=== PATIENT | female | born 1985 | race African-American/Black ===

== ENCOUNTER 2017-01-23 13:10 | Emergency (ER) | payer SELFPAY ==
[~2017-01-23] VITALS: Ht 152.4 cm; Wt 77.1 kg
[2017-01-23] MEDS ORDERED: IV NORMAL SALINE 500ML BAG 500 ML IV SCH (14:15)
[2017-01-23] MEDS ORDERED: 0.9 % SODIUM CHLORIDE 10 ML DISP.SYRIN. IV PRN (14:15)
--- NOTE | 2017-01-23 14:17 | PHYS DOC ---
Past Medical History Past Medical History: Asthma Past Surgical History: Alcohol Use: None Drug Use: None Adult General Chief Complaint Chief Complaint: VAGINAL BLEEDING HPI HPI Patient is a pleasant 31-year-old is approximately 12 days by last menstrual period with a positive test earlier this morning she took 4 times noted some vaginal bleeding with clots that began early this morning but now subsided. Patient has had no abdominal pain, no nausea, no vomiting, no breast tenderness, no fevers no chills or UTI symptoms. Patient also denies any trauma or bleeding dyscrasias. Is no liquids other than the fracture was a verified that she is in fact and how far along she is. She denies any history of sexual transmitted diseases Review of Systems Review of Systems Constitutional: Denies fever or chills [] Eyes: Denies change in visual acuity, redness, or eye pain [] HENT: Denies nasal congestion or sore throat [] Respiratory: Denies cough or shortness of breath [] Cardiovascular: No additional information not addressed in HPI [] GI: Denies abdominal pain, nausea, vomiting, bloody stools or diarrhea [] : Denies dysuria or hematuria [] Musculoskeletal: Denies back pain or joint pain [] Integument: Denies rash or skin lesions [] Neurologic: Denies headache, focal weakness or sensory changes [] Endocrine: Denies polyuria or polydipsia [] Current Medications Current Medications Current Medications Medications (Trade) Dose Ordered Sig/Yin Start Time Stop Time Status Last Admin Dose Admin Sodium Chloride 500 ml @ 500 mls/hr Q1H 01/23/17 14:15 01/23/17 14:54 DC 01/23/17 14:52 500 MLS/HR Sodium Chloride (Normal Saline Flush) 10 ml QSHIFT PRN 01/23/17 14:15 01/23/17 14:54 10 ML Allergies Allergies Allergies Coded Allergies Type Severity Reaction Last Updated Verified No Known Drug Allergies 09/24/13 No Physical Exam Physical Exam Vital signs stable within normal limits Constitutional: Well developed, well nourished, no acute distress, non-toxic appearance. [] HENT: Normocephalic, atraumatic, bilateral external ears normal, oropharynx moist, no oral exudates, nose normal. [] Eyes: PERRLA, EOMI, conjunctiva normal, no discharge. [] Neck: Normal range of motion, no tenderness, supple, no stridor. [] Cardiovascular:Heart rate regular rhythm, no murmur [] Lungs & Thorax: Bilateral breath sounds clear to auscultation [] Abdomen: Bowel sounds normal, soft, no tenderness, no masses, no pulsatile masses. Pelvic exam shows no CMT, no adnexal fullness or tenderness to palpation. There is no bleeding coming from the cervical os is no clots or tissue in the vault. Patient's mucosa is within normal limits there is no lesions or injury to the outside the vaginal labia majora and minora. [] Skin: Warm, dry, no erythema, no rash. [] Extremities: No tenderness, no cyanosis, no clubbing, ROM intact, no edema. [] Neurologic: Alert and oriented X 3, normal motor function, normal sensory function, no focal deficits noted. [] Psychologic: Affect normal, judgement normal, mood normal. [] Current Patient Data Vital Signs Vital Signs Date Time Temp Pulse Resp B/P (MAP) Pulse Ox O2 Delivery O2 Flow Rate FiO2 01/23/17 14:58 73 18 108/58 (75) 100 Room Air 01/23/17 13:55 98.9 98.9 Lab Values Laboratory Tests Test 01/23/17 13:13 01/23/17 14:10 01/23/17 14:30 POC Urine HCG, Qualitative Hcg positive (Negative) Urine Color Yellow Urine Clarity Clear Urine pH 6.5 Urine Specific [place] 1.010 Urine Protein Negative mg/dL (NEG-TRACE) Urine Glucose (UA) Negative mg/dL (NEG) Urine Ketones (Stick) Negative mg/dL (NEG) Urine Blood Negative (NEG) Urine Nitrite Negative (NEG) Urine Bilirubin Negative (NEG) Urine Urobilinogen Dipstick 0.2 mg/dL (0.2 mg/dL) Urine Leukocyte Esterase Negative (NEG) Urine RBC 0 /HPF (0-2) Urine WBC Occ /HPF (0-4) Urine Squamous Epithelial Cells Occ /LPF Urine Bacteria 0 /HPF (0-FEW) Urine Mucus Slight /LPF White Blood Count 6.2 x10^3/uL (4.0-11.0) Red Blood Count 3.99 x10^6/uL (3.50-5.40) Hemoglobin 12.1 g/dL (12.0-15.5) Hematocrit 36.1 % (36.0-47.0) Mean Corpuscular Volume 90 fL (79-100) Mean Corpuscular Hemoglobin 30 pg (25-35) Mean Corpuscular Hemoglobin Concent 34 g/dL (31-37) Red Cell Distribution Width 13.0 % (11.5-14.5) Platelet Count 256 x10^3/uL (140-400) Neutrophils (%) (Auto) 54 % (31-73) Lymphocytes (%) (Auto) 31 % (24-48) Monocytes (%) (Auto) 13 % (0-9) H Eosinophils (%) (Auto) 2 % (0-3) Basophils (%) (Auto) 1 % (0-3) Neutrophils # (Auto) 3.3 x10^3uL (1.8-7.7) Lymphocytes # (Auto) 1.9 x10^3/uL (1.0-4.8) Monocytes # (Auto) 0.8 x10^3/uL (0.0-1.1) Eosinophils # (Auto) 0.1 x10^3/uL (0.0-0.7) Basophils # (Auto) 0.0 x10^3/uL (0.0-0.2) Maternal Serum HCG Beta Subunit 3309 mIU/mL (0-5) H Sodium Level 139 mmol/L (136-145) Potassium Level 3.9 mmol/L (3.5-5.1) Chloride Level 103 mmol/L (98-107) Carbon Dioxide Level 27 mmol/L (21-32) Anion Gap 9 (6-14) Blood Urea Nitrogen 9 mg/dL (7-20) Creatinine 0.8 mg/dL (0.6-1.0) Estimated GFR (Cockcroft-Gault) 100.6 BUN/Creatinine Ratio 11 (6-20) Glucose Level 84 mg/dL (70-99) Calcium Level 8.7 mg/dL (8.5-10.1) Total Bilirubin 0.3 mg/dL (0.2-1.0) Aspartate Amino Transferase (AST) 11 U/L (15-37) L Alanine Aminotransferase (ALT) 21 U/L (14-59) Alkaline Phosphatase 57 U/L (46-116) Total Protein 6.7 g/dL (6.4-8.2) Albumin 3.7 g/dL (3.4-5.0) Albumin/Globulin Ratio 1.2 (1.0-1.7) Laboratory Tests 01/23/17 14:30 Laboratory Tests 01/23/17 14:30 Microbiology 01/23/17 Wet Prep - Final, Complete EKG EKG [] Radiology/Procedures Radiology/Procedures [] IMAGING REPORT Signed PATIENT: JOSE MIGUEL HENSON ACCOUNT: [id number] : 1985 LOCATION: ER AGE: 31 SEX: F EXAM STATUS: REG ER ORD. PHYSICIAN: CRISTIAN HOGAN MD REASON: vaginal bleeding first trimester PROCEDURE: OB <14 WKS W/TV Indication vaginal spotting. Reportedly early . Initially transabdominal scans were obtained. Initial transabdominal scans were supplemented with transvaginal scans. At the time of the interpretation of this examination confirmation of has not been established. No positive urine test has been provided. No quantitative hCG value is available. The uterus measures approximately 10 5.7 x 5.6 cm. At the fundus of the uterus is a small fluid collection consistent with a small gestational sac. No yolk sac or pole however is identified. A pseudogestational sac associated with ectopic cannot be excluded on the basis of this exam. Correlation with a quantitative hCG value is advised. The right ovary appears unremarkable. There is some free fluid adjacent to the right ovary. Within the left ovary there is a hypoechoic 3 cm mass compatible with a physiologic cyst. IMPRESSION: Small amount of fluid at the fundus of the uterus may represent an early gestational sac. Ectopic cannot be excluded on the basis of this examination. The ultrasound findings could should be correlated with a quantitative hCG value. Follow-up ultrasound imaging in a week to 10 days also may be useful Small amount of free fluid in the right adnexa. Physiologic cyst associated with the left ovary DICTATED and SIGNED BY: PRITESH BRIGGS MD DATE: 01/23/17 1500 CC: CRISTIAN HOGAN MD; NO PCP ~ Course & Med Decision Making Course & Med Decision Making Pertinent Labs and Imaging studies reviewed. (See chart for details) quantitative hCG is 3300. But unfortunately there is no clear IUP on transvaginal ultrasound done at the bedside. There is no abdominal pain this time no adnexal fullness no bleeding into the abdomen. she has no free fluid is no active bleeding at this time her wet prep was negative. Urinalysis unremarkable. I will give [facility] on-call a call so that she can follow-up for repeat quantitative hCG and precautions given. Research Coordinator note: [employer] [facility] [employer] Research Coordinator called at of the service Dr. Dacosta called at 4:15 pm Consult called back at 4:40 pm Discussed the case I presented and they agreed close follow up at 3 PM on Monday. We will give bleeding precautions abdominal pain precautions. Patient 's ectopic risk factors of been reviewed. He has no history of prior ectopic , no history of PID, no history of is rotation a tubal ligation, no history of fertility drugs. Impression: Threatened miscarriage possible early ectopic disPosition a recurrent: [facility] follow-up specific appointment at 3 PM on Monday, January 25. In Dr. Gill's office bleeding and abdominal pain precautions given [] Dragon Disclaimer Dragon Disclaimer This electronic medical record was generated, in whole or in part, using a voice recognition dictation system. Departure Departure Impression: Primary Impression: Threatened miscarriage Disposition: 01 HOME, SELF-CARE Condition: IMPROVED Referrals: NO PCP (PCP) ALEXANDER DACOSTA MD Patient Instructions: Threatened Miscarriage Additional Instructions: This return immediately for any abdominal pain. Please follow-up as planned at 3 PM January 25, [address] Dacosta. He is expecting in his office to repeat the quantitative hCG and repeat a pelvic exam if necessary. At this time he still could have an ectopic asked that you to return immediately for any abdominal pain, increasing vaginal bleeding greater than one pad per hour for 8 hours or if you have any other questions or concerns. CRISTIAN HOGAN MD Jan 23, 2017 14:17
[2017-01-23 14:26] LABS: BILIRUBIN,URINE NEGATIVE (NEG); GLUCOSE,URINE NEGATIVE (NEG); NITRITE,URINE NEGATIVE (NEG); PH,URINE 6.5; PROTEIN,URINE NEGATIVE (NEG-TRACE); UROBILINOGEN,URINE 0.2 mg/dL (0.2 mg/dL)
[2017-01-23 14:42] LABS: BASO % 1 % (0-3); EOS % 2 % (0-3); HEMATOCRIT 36.1 % (36.0-47.0); HEMOGLOBIN 12.1 g/dL (12.0-15.5); LYMPH # 1.9 x10^3/uL (1.0-4.8); LYMPH % 31 % (24-48); MEAN CORPUSCULAR HEMOGLOBIN 30 pg (25-35); MEAN CORPUSCULAR HGB CONC 34 g/dL (31-37); MEAN CORPUSCULAR VOLUME 90 fL (79-100); MONO % 13 % (0-9); NEUT % 54 % (31-73); PLATELET COUNT 256 x10^3/uL (140-400); RED BLOOD COUNT 3.99 x10^6/uL (3.50-5.40); WHITE BLOOD COUNT 6.2 x10^3/uL (4.0-11.0)
[2017-01-23 14:53] LABS: CALCIUM 8.7 mg/dL (8.5-10.1); CREATININE 0.8 mg/dL (0.6-1.0); GFR 100.6; POTASSIUM 3.9 mmol/L (3.5-5.1)
[2017-01-23 14:58] LABS: BACTERIA,URINE 0 /HPF (0-FEW); RBC,URINE 0 /HPF (0-2); SQUAMOUS EPITHELIAL CELL,UR OCC /LPF; WBC,URINE OCC /HPF (0-4)
[2017-01-23 15:04] LABS: ALBUMIN 3.7 g/dL (3.4-5.0); ALBUMIN/GLOBULIN RATIO 1.2 (1.0-1.7); TOTAL BILIRUBIN 0.3 mg/dL (0.2-1.0); TOTAL PROTEIN 6.7 g/dL (6.4-8.2)
--- NOTE | 2017-01-23 15:07 | RAD ---
Indication vaginal spotting. Reportedly early . Initially transabdominal scans were obtained. Initial transabdominal scans were supplemented with transvaginal scans. At the time of the interpretation of this examination confirmation of has not been established. No positive urine test has been provided. No quantitative hCG value is available. The uterus measures approximately 10 5.7 x 5.6 cm. At the fundus of the uterus is a small fluid collection consistent with a small gestational sac. No yolk sac or pole however is identified. A pseudogestational sac associated with ectopic cannot be excluded on the basis of this exam. Correlation with a quantitative hCG value is advised. The right ovary appears unremarkable. There is some free fluid adjacent to the right ovary. Within the left ovary there is a hypoechoic 3 cm mass compatible with a physiologic cyst. IMPRESSION: Small amount of fluid at the fundus of the uterus may represent an early gestational sac. Ectopic cannot be excluded on the basis of this examination. The ultrasound findings could should be correlated with a quantitative hCG value. Follow-up ultrasound imaging in a week to 10 days also may be useful Small amount of free fluid in the right adnexa. Physiologic cyst associated with the left ovary
[2017-01-23 16:46] VITALS: BP 109/58
== END 2017-01-23 17:02 | disposition home or self-care (01) ==
LOC: ER 13:10
DX: O20.0 Threatened abortion (principal); O99.519 Diseases of the respiratory system complicating pregnancy, unspecified trimester; J45.909 Unspecified asthma, uncomplicated; Z3A.00 Weeks of gestation of pregnancy not specified
CPT/HCPCS: 36415; 76801; 76817; 80053; 81001; 81025; 84702; 85027; 86900; 86901; 87491; 87591; 96360; 99285; J7040; Q0111